=== PATIENT | female | born 1945 | race Caucasian/White ===

== ENCOUNTER 2018-04-05 17:35 | Observation (INO) ==
[2018-04-05 17:44] VITALS: TEMP 99.9
[2018-04-05] MEDS ORDERED: Morphine Inj 4 MG/ML Vial IV.PUSH ONE (19:00)
--- NOTE | 2018-04-05 19:00 | ED ---
HPI General Chief complaint: Hypertension Stated complaint: blood pressure Time Seen by Provider: 04/05/18 18:25 Source: patient and family Mode of arrival: ambulatory Limitations: language barrier History of Present Illness HPI narrative: Patient is a 72-year-old female presenting to the emergency department for evaluation of headache and facial pain. Patient states it started yesterday, the pain is localized to the left episcopalian with radiation to the left cheek and left forehead. She reports the pain is 9 out of 10. Pain is aching and throbbing in nature. Constant. Patient denies any fever, chills , visual changes, nausea, vomiting, chest pain, shortness of breath. She reports that her blood pressure has been elevated. Symptom onset was fairly sudden, symptoms are moderate, no alleviating factors. Related Data Home Medications Medication Instructions Recorded Confirmed atenolol 100 mg PO DAILY 04/05/18 04/05/18 atorvastatin [Lipitor] 20 mg PO DAILY 04/05/18 04/05/18 losartan 0.5 mg/kg PO DAILY 04/05/18 04/05/18 nitrofurantoin 100 mg PO QID 04/05/18 04/05/18 Allergies Allergy/AdvReac Type Severity Reaction Status Date / Time Sulfa (Sulfonamide Allergy Hives Verified 04/05/18 18:16 Antibiotics) Review of Systems ROS: all other systems reviewed are negative [facility] Medical History Medical History HBP (high blood pressure) (Acute) High cholesterol (Acute) Social History Social History Substance History: No History of Abuse Second Hand Smoke Exposure: No Smoking Status: Never smoker How Often Do You Have a Drink Containing Alcohol: Never Recent Travel in [facility] within the Last 8 Weeks: No Recent Out of Country Travel within the Last 8 Weeks: No Immunization History Tetanus Immunization: >5 Years Exam Narrative Exam Narrative: GENERAL: Well-developed, well-nourished, alert elderly female. Appears uncomfortable, no acute distress. SKIN: Focused skin assessment warm/dry. No rash or obvious lesions. HEAD: Atraumatic. Normocephalic. Tenderness to palpation to left episcopalian. EYES: Pupils equal and round. No scleral icterus. No injection or drainage. ENT: No nasal bleeding or discharge. Mucous membranes pink and moist. NECK: Trachea midline. No JVD. CARDIOVASCULAR: Regular rate and rhythm. No murmur appreciated. RESPIRATORY: No accessory muscle use. Clear to auscultation. Breath sounds equal bilaterally. GASTROINTESTINAL: Abdomen soft, non-tender, nondistended. Hepatic and splenic margins not palpable. MUSCULOSKELETAL: No obvious deformities. No clubbing. No cyanosis. No edema. NEUROLOGICAL: Awake and alert. No obvious cranial nerve deficits. Motor grossly within normal limits. Normal speech. PSYCHIATRIC: Appropriate mood and affect; insight and judgment normal. Course Initial Documented Vital Signs Temperature 99.9 F H 04/05/18 17:41 Pulse Rate 77 04/05/18 17:41 Respiratory Rate 20 04/05/18 17:41 Blood Pressure 200/79 H 04/05/18 17:41 Pulse Oximetry 99 04/05/18 17:41 Last Documented Vital Signs Temperature 99.9 F H 04/05/18 17:41 Pulse Rate 68 04/05/18 19:15 Respiratory Rate 20 04/05/18 20:22 Blood Pressure 181/77 H 04/05/18 19:15 Pulse Oximetry 97 04/05/18 19:15 Medical Decision Making MDM Narrative Medical decision making narrative: Patient is a 72-year-old female presenting to the emergency department evaluation of headache and facial pain. Labs and imaging ordered and pending including a CRP and sed rate to rule out temporal arteritis. Blood pressure was initially elevated on arrival, blood pressure began to trend down while patient was waiting in the room. CBC with no acute findings Chemistry is unremarkable CT scan of the brain with left paranasal sinus disease CRP is 6, sed rate is 53 Discussed with my attending physician, discussed with on-call neurology who recommended 250 mg of Solu-Medrol now, routine consult to general surgery. Discussed with Dr. Oliva who felt that patient's symptoms were more related to sinusitis then temporal arteritis. He came to evaluate patient, admit orders placed. Medical Screen Exam Complete: Yes Emergency Medical Condition: Yes Differential Diagnosis Differential Diagnosis: Trigeminal neuralgia versus temporal arteritis versus metabolic abnormality versus TIA versus ICH versus other Lab Data Lab results reviewed: Yes I reviewed the patient's lab results. Result diagrams: 04/05/18 18:31 04/05/18 18:31 Lab Results 04/05/18 04/05/18 04/05/18 Range/Units 18:31 18:31 18:31 WBC 8.1 (4.0-11.0) th/mm3 RBC 4.23 (4.00-5.30) mil/mm3 Hgb 13.0 (11.6-15.3) gm/dL Hct 38.7 (35.0-46.0) % MCV 91.6 (80.0-100.0) fL MCH 30.8 (27.0-34.0) pg MCHC 33.6 (32.0-36.0) % RDW 13.3 (11.6-17.2) % Plt Count 223 (150-450) th/mm3 MPV 8.3 (7.0-11.0) fL Neut % (Auto) 75.8 H (16.0-70.0) % Lymph % (Auto) 16.5 (9.0-44.0) % [place] % (Auto) 6.6 (0.0-8.0) % Eos % (Auto) 0.6 (0.0-4.0) % Baso % (Auto) 0.5 (0.0-2.0) % Neut # (Auto) 6.1 (1.8-7.7) th/mm3 Lymph # (Auto) 1.3 (1.0-4.8) th/mm3 [place] # (Auto) 0.5 (0.0-0.9) th/mm3 Eos # (Auto) 0.0 (0.0-0.4) th/mm3 Baso # (Auto) 0.0 (0.0-0.2) th/mm3 WBC Differential . Differential Comment Auto diff final ESR (0-30) mm/hr PT 10.6 (9.8-11.6) sec INR 1.0 Ratio APTT 28.2 (23.4-31.7) sec Sodium 139 (136-145) meq/L Potassium 4.2 (3.5-5.1) meq/L Chloride 105 (98-107) meq/L Carbon Dioxide 27.5 (21.0-32.0) meq/L Anion Gap 7 (5-15) meq/L BUN 19 H (7-18) mg/dL Creatinine 0.87 (0.50-1.00) mg/dL Estimated GFR 64 L (>89) mL/min Random Glucose 124 H (74-106) mg/dL Calcium 8.7 (8.5-10.1) mg/dL Total Bilirubin 0.6 (0.2-1.0) mg/dL AST 24 (15-37) U/L ALT 34 (10-53) U/L Alkaline Phosphatase 130 H (45-117) U/L Total Creatine Kinase 71 (26-192) U/L Troponin I Less than 0.02 L (0.02-0.05) ng/mL C-Reactive Protein 6.00 H (0.00-0.30) mg/dL Total Protein 7.6 (6.4-8.2) g/dL Albumin 3.4 (3.4-5.0) g/dL 04/05/18 Range/Units 18:31 WBC (4.0-11.0) th/mm3 RBC (4.00-5.30) mil/mm3 Hgb (11.6-15.3) gm/dL Hct (35.0-46.0) % MCV (80.0-100.0) fL MCH (27.0-34.0) pg MCHC (32.0-36.0) % RDW (11.6-17.2) % Plt Count (150-450) th/mm3 MPV (7.0-11.0) fL Neut % (Auto) (16.0-70.0) % Lymph % (Auto) (9.0-44.0) % [place] % (Auto) (0.0-8.0) % Eos % (Auto) (0.0-4.0) % Baso % (Auto) (0.0-2.0) % Neut # (Auto) (1.8-7.7) th/mm3 Lymph # (Auto) (1.0-4.8) th/mm3 [place] # (Auto) (0.0-0.9) th/mm3 Eos # (Auto) (0.0-0.4) th/mm3 Baso # (Auto) (0.0-0.2) th/mm3 WBC Differential Differential Comment ESR 58 H (0-30) mm/hr PT (9.8-11.6) sec INR Ratio APTT (23.4-31.7) sec Sodium (136-145) meq/L Potassium (3.5-5.1) meq/L Chloride (98-107) meq/L Carbon Dioxide (21.0-32.0) meq/L Anion Gap (5-15) meq/L BUN (7-18) mg/dL Creatinine (0.50-1.00) mg/dL Estimated GFR (>89) mL/min Random Glucose (74-106) mg/dL Calcium (8.5-10.1) mg/dL Total Bilirubin (0.2-1.0) mg/dL AST (15-37) U/L ALT (10-53) U/L Alkaline Phosphatase (45-117) U/L Total Creatine Kinase (26-192) U/L Troponin I (0.02-0.05) ng/mL C-Reactive Protein (0.00-0.30) mg/dL Total Protein (6.4-8.2) g/dL Albumin (3.4-5.0) g/dL Imaging Data Radiologist's impression: Chest X-Ray 04/05/18 18:25 CONCLUSION: Under aerated with mild cardiomegaly and minimal interstitial prominence. Otherwise negative for acute process Head CT 04/05/18 18:25 CONCLUSION: 1. Senescent changes without acute intracranial abnormality. 2. Prominent left paranasal sinus mucosal disease. . . Discharge Plan Discharge Disposition Patient Disposition: ED Admit(ED Internal Use Only) Discharge Condition Condition: Stable Discharge Order Discharge Orders: ED Use Only Admit Order (Routine); Ordered 04/05/18 Ordered By: Ying Mcallister Discharge Details Diagnosis: Headache Physicians Team ED Provider: Conchis Knox ED Midlevel Provider: Ying Mcallister Primary Care Provider: UNKNOWN, Other Providers: Jaxon Hayes Rxs /Orders / Referrals /Forms Prescriptions: No Action atorvastatin [Lipitor] 20 mg Tablet 20 mg PO DAILY RF: 0 atenolol 100 mg Tablet 100 mg PO DAILY RF: 0 nitrofurantoin 25 mg/5 mL Suspension 100 mg PO QID RF: 0 losartan 25 mg Tablet 0.5 mg/kg PO DAILY RF: 0 Status ED Status: Admitted Observation Patient
--- NOTE | 2018-04-05 19:00 | CT ---
EXAM DATE: 04/05/2018 6:57 PM EST AGE/SEX: 72 years / Female INDICATIONS: Cephalgia. CLINICAL DATA: This is the patient's initial encounter. Patient reports that signs and symptoms have been present for 1 day and indicates a pain score of 8/10. MEDICAL/SURGICAL HISTORY: Hypertension. None. RADIATION DOSE: 56.35 CTDI (mGy) COMPARISON: No prior exams available for comparison. TECHNIQUE: CT of the head without contrast. Using automated exposure control and adjustment of the mA and/or kV according to patient size, radiation dose was kept as low as reasonably achievable to ob tain optimal diagnostic quality images. DICOM format image data is available electronically for revi ew and comparison. FINDINGS: Cerebrum: Mild diffuse cerebral atrophy. The ventricles are normal for age. No evidence of midline sh ift, mass lesion, hemorrhage or acute infarction. No extraaxial fluid collections are seen. Posterior Fossa: The cerebellum and brainstem are intact. The 4th ventricle is midline. The cerebe llopontine angle is unremarkable. Extracranial: The visualized portion of the orbits is intact. Skull: The calvaria is intact. No evidence of skull fracture. Near-complete opacification of the le ft maxillary sinus with mucoperiosteal thickening in the left frontal sinus and ethmoid air cells. CONCLUSION: 1. Senescent changes without acute intracranial abnormality. 2. Prominent left paranasal sinus mucosal disease. . . Electronically signed by: Jacky Lee MD Board Certified Radiologist 04/05/2018 6:59 PM EST
[2018-04-05 19:06] LABS: Albumin 3.4 g/dL (3.4-5.0); Anion Gap 7 meq/L (5-15); Aspartate Aminotransferase 24 U/L (15-37); Blood Urea Nitrogen 19 mg/dL (7-18); Calcium 8.7 mg/dL (8.5-10.1); Carbon Dioxide 27.5 meq/L (21.0-32.0); Chloride 105 meq/L (98-107); Glomerular Filtration Rate 64 mL/min (>89); Glucose,Random 124 mg/dL (74-106); Potassium 4.2 meq/L (3.5-5.1); Sodium 139 meq/L (136-145)
[2018-04-05 19:07] LABS: Alanine Aminotransferase 34 U/L (10-53)
[2018-04-05 19:11] LABS: Activated Partial Thrombo Time 28.2 sec (23.4-31.7); Alkaline Phosphatase 130 U/L (45-117); Prothrombin Time 10.6 sec (9.8-11.6); Total Protein 7.6 g/dL (6.4-8.2)
[2018-04-05 19:12] LABS: Baso % (Auto) 0.5 % (0.0-2.0); Eos % (Auto) 0.6 % (0.0-4.0); Hematocrit 38.7 % (35.0-46.0); Lymph # (Auto) 1.3 th/mm3 (1.0-4.8); Lymph % (Auto) 16.5 % (9.0-44.0); Mean Corpuscular HGB Conc 33.6 % (32.0-36.0); Mean Corpuscular Hemoglobin 30.8 pg (27.0-34.0); Mean Corpuscular Volume 91.6 fL (80.0-100.0); Mean Platelet Volume 8.3 fL (7.0-11.0); Mono # (Auto) 0.5 th/mm3 (0.0-0.9); Mono % (Auto) 6.6 % (0.0-8.0); Neut # (Auto) 6.1 th/mm3 (1.8-7.7); Neut % (Auto) 75.8 % (16.0-70.0); Platelet Count 223 th/mm3 (150-450); Red Blood Count 4.23 mil/mm3 (4.00-5.30); Red Cell Distribution Width 13.3 % (11.6-17.2); White Blood Count 8.1 th/mm3 (4.0-11.0)
[2018-04-05 19:13] LABS: Creatine Kinase 71 U/L (26-192)
--- NOTE | 2018-04-05 19:15 | XR ---
EXAM DATE: 04/05/2018 7:11 PM EST AGE/SEX: 72 years / Female INDICATIONS: Elevated blood pressure with headaches. CLINICAL DATA: This is the patient's initial encounter. Patient reports that signs and symptoms have been present for 1 day and indicates a pain score of 0/10. MEDICAL/SURGICAL HISTORY: Hypertension. None. COMPARISON: No prior exams available for comparison. FINDINGS: The lungs are under aerated with mild interstitial prominence. Heart is minimally enlarged. There is no evidence consolidation, pleural effusion or pneumothorax. Degenerative changes about both shoulders. CONCLUSION: Under aerated with mild cardiomegaly and minimal interstitial prominence. Otherwise negative for acut e process Electronically signed by: Kranthi Persaud MD Board Certified Radiologist 04/05/2018 7:13 PM EST
[2018-04-05] MEDS ORDERED: MethylPREDNISolone Sod Succinate Inj 125 MG/2 ML Vial IV.PUSH ONE (20:44)
[2018-04-05] MEDS ORDERED: Ampicillin/Sulbactam Inj 3 GM in Sodium Chloride 0.9% Inj 100 ML IV.SIG ONE (21:30)
[2018-04-05] MEDS ORDERED: hydroCHLOROthiazide 25 MG Tablet PO ONE (22:04)
--- NOTE | 2018-04-05 22:28 | P.HPIM ---
History of Present Illness Primary Care Physician: UNKNOWN Chief Complaint: Left face pain. History of Present Illness: Patient offered Estonian-speaking cooler operator however opts to use her sister at bedside. 72-year-old female with a history of hypertension, hyperlipidemia, recurrent UTIs who presents with a 1 day history of worsening sharp constant pain of her left cheek, which radiates to her forehead and around her left eye. She says she had the pain 10 days ago, it lasted for a week and went away. She also reports a 10-day history of yellow postnasal mucus and irritated throat without difficulty swallowing. She denies any fevers or chills. She thought it could be a left upper tooth problem however saw a dentist and found no abnormalities. Patient reports history of chronic unsteady gait, however denies any focal weakness. Denies any vision changes. Denies any chest pain or shortness of breath. Denies any proximal muscle weakness or stiffness. She denies any pain with visual tracking. She reports chronic urinary incontinence which is unchanged and denies any dysuria. Review of Systems Review of Systems: all other systems reviewed are negative [facility] Medical History Medical History HBP (high blood pressure) (Acute) High cholesterol (Acute) Surgical History Surgical History History of urologic surgery (Acute) Family History Family History Mother Hypertension Father Old age Social History Social History Substance History: No History of Abuse Second Hand Smoke Exposure: No Smoking Status: Never smoker How Often Do You Have a Drink Containing Alcohol: Never [facility] within the Last 8 Weeks: No Recent Out of Country Travel within the Last 8 Weeks: No Immunization History Tetanus Immunization: >5 Years Medications and Allergies Allergies Allergy/AdvReac Type Severity Reaction Status Date / Time Sulfa (Sulfonamide Allergy Hives Verified 04/05/18 18:16 Antibiotics) Active Medications: Active Medications Hydrochlorothiazide (Hydrodiuril) 25 mg PO ONCE ONE Stop: 04/05/18 22:05 Sodium Chloride (Ns Flush) 2 ml IV.FLUSH PRN PRN PRN Reason: FLUSH AFTER USING IV ACCESS Physical Exam Vital signs: Vital Signs 04/05/18 17:41 04/05/18 18:25 04/05/18 19:15 Temperature 99.9 F H Pulse Rate 77 69 68 Respiratory Rate 20 16 Blood Pressure 200/79 H 181/77 H Pulse Oximetry 99 97 04/05/18 20:22 Temperature Pulse Rate Respiratory Rate 20 Blood Pressure Pulse Oximetry Intake & Output 04/05/18 04/05/18 04/06/18 06:59 18:59 06:59 Weight 77.111 kg Narrative: GENERAL: Patient lying in bed. Appears uncomfortable. Alert and oriented x3. Sister at bedside. SKIN: Warm and dry. HEAD: Atraumatic. Normocephalic. EYES: Pupils equal and round. No scleral icterus. No injection or drainage. ENT: Patient with inflamed nasal mucosa bilaterally, with turbinate hypertrophy , touching turbinates on the left. Left maxillary tenderness to palpation. No significant tenderness of left temporal region. No erythema noted. NECK: Trachea midline. No JVD. CARDIOVASCULAR: Regular rate and rhythm. RESPIRATORY: No accessory muscle use. Clear to auscultation. Breath sounds equal bilaterally. GASTROINTESTINAL: Abdomen soft, non-tender, nondistended. Hepatic and splenic margins not palpable. MUSCULOSKELETAL: Extremities without clubbing, cyanosis. +1 bilateral lower extremity edema, appears chronic. Patient says this is stable. No obvious deformities. NEUROLOGICAL: Awake and alert. No obvious cranial nerve deficits. Motor grossly within normal limits. Five out of 5 muscle strength in the arms and legs. Normal speech. PSYCHIATRIC: Appropriate mood and affect; insight and judgment normal. Results Labs CBC & Chem 7: 04/05/18 18:31 04/05/18 18:31 Imaging Impressions Chest X-Ray 04/05/18 18:25 CONCLUSION: Under aerated with mild cardiomegaly and minimal interstitial prominence. Otherwise negative for acute process Head CT 04/05/18 18:25 CONCLUSION: 1. Senescent changes without acute intracranial abnormality. 2. Prominent left paranasal sinus mucosal disease. . . Caprini VTE Risk Assessment Caprini VTE Risk Assessment: Moderate/High Risk (score >= 2) Caprini Risk Assessment Model: Point Value = 1 Point Value = 2 Point Value = 3 Point Value = 5 Age 41-60 Minor surgery BMI > 25 kg/m2 Swollen legs Varicose veins or History of unexplained or recurrent spontaneous Oral contraceptives or hormone replacement Sepsis (< 1 month) Serious lung disease, including pneumonia (< 1 month) Abnormal pulmonary function Acute myocardial infarction Congestive heart failure (< 1 month) History of inflammatory bowel disease Medical patient at bed rest Age 61-74 Arthroscopic surgery Major open surgery (> 45 min) Laparoscopic surgery (> 45 min) Malignancy Confined to bed (> 72 hours) Immobilizing plaster cast Central venous access Age >= 75 History of VTE Family history of VTE Factor V Leiden Prothrombin [id number] Lupus anticoagulant Anticardiolipin antibodies Elevated serum homocysteine Heparin-induced thrombocytopenia Other congenital or acquired thrombophilia Stroke (< 1 month) Elective arthroplasty Hip, pelvis, or leg fracture Acute spinal cord injury (< 1 month) Prophylaxis Regimen: Total Risk Factor Score Risk Level Prophylaxis Regimen 0-1 Low Early ambulation 2 Moderate Order ONE of the following: *Sequential Compression Device (SCD) *Heparin 5000 units SQ BID 3-4 Higher Order ONE of the following medications: *Heparin 5000 units SQ TID *Enoxaparin/Lovenox 40 mg SQ daily (WT < 150 kg, CrCl > 30 mL/min) *Enoxaparin/Lovenox 30 mg SQ daily (WT < 150 kg, CrCl > 10-29 mL/min) *Enoxaparin/Lovenox 30 mg SQ BID (WT < 150 kg, CrCl > 30 mL/min) AND/OR *Sequential Compression Device (SCD) 5 or more Highest Order ONE of the following medications: *Heparin 5000 units SQ TID (Preferred with Epidurals) *Enoxaparin/Lovenox 40 mg SQ daily (WT < 150 kg, CrCl > 30 mL/min) *Enoxaparin/Lovenox 30 mg SQ daily (WT < 150 kg, CrCl > 10-29 mL/min) *Enoxaparin/Lovenox 30 mg SQ BID (WT < 150 kg, CrCl > 30 mL/min) AND *Sequential Compression Device (SCD) Assessment and Plan Plan //Acute left paranasal sinusitis. -With low-grade fever, severe left facial pain. -Patient has tenderness over the left maxillary sinus, no tenderness over the left shinto. -CT head with left paranasal sinusitis. -ESR elevated in the 50s, CRP elevated at 6. There was concern for temporal arteritis however patient clinically has left maxillary/paranasal sinusitis. Patient did receive Solu-Medrol IV x1. -We will start on Augmentin, low-dose prednisone taper. Patient has touching turbinates, and have considered Afrin however would not be advised given high blood pressure. Referral to ENT as outpatient. //Accelerated hypertension. Likely secondary to pain and stress. -Family reports patient going through stress due to altered travel plans recently. -We will start on Hydrocort thiazide. Patient advised to follow-up with primary care to recheck labs within 1 week. /patient requesting refills on all of her medications. She says she took her medications today however has run out. Will refill and have advised her to follow-up with primary care as outpatient. //History of recurrent UTIs. Will continue on home medication at discharge. //VT E. Patient is ambulatory and will be discharged. Discussed Condition With: Patient, nurse, ED physician. Discharge Planning: Patient was discharged home with follow-up ENT, primary care as outpatient.
[2018-04-05 22:40] VITALS: BP 151/66; PULSE 79; RESP 18; O2SAT 94
--- NOTE | 2018-04-06 21:55 | ECG ---
Date Performed: 04/05/2018 Time Performed: 17:48:55 PTAGE: 72 years EKG: Sinus rhythm NORMAL ECG NO PREVIOUS TRACING DOCTOR: Albert Adams Interpretating Date/Time 04/06/2018 21:54:44
== END 2018-04-05 23:18 | disposition home or self-care (01) ==
LOC: NEPE 17:35 → NEDA 17:35
PROVIDERS: ADMIT Internal Medicine; ATTEND Internal Medicine
DX: R79.82 Elevated C-reactive protein (CRP); E78.00 Pure hypercholesterolemia, unspecified; Z79.899 Other long term (current) drug therapy; J34.3 Hypertrophy of nasal turbinates; I11.9 Hypertensive heart disease without heart failure; R50.9 Fever, unspecified; R60.0 Localized edema; J32.9 Chronic sinusitis, unspecified
CPT/HCPCS: 70450; 71010; 71045; 80053; 82550; 82948; 82962; 84484; 85025; 85610; 85651; 85652; 85730; 86140; 90765; 90775; 93005; 96365; 96375; 99285; G0378; J0295; J2270; J2405; J2930